=== PATIENT | female | born 1985 | race Caucasian/White ===

== ENCOUNTER 2016-06-16 03:14 | Emergency (ER) | payer OTHER ==
--- NOTE | 2016-06-16 03:46 | ERNOTE ---
Time Seen by Provider: 06/16/16 03:32 Stated Complaint: COUGH Presenting Symptoms:: cough Source: patient, family Exam Limitations: no limitations Immunizations: IMMUNIZATION HX Immunizations Up to Date Yes History of Influenza Vaccine Yes Hx Pneumococcal Vaccination No Allergies/Adverse Reactions: Allergies acetaminophen [From Percocet] Adverse Reaction (Verified 12/11/15 17:43) Nausea oxycodone HCl [From Percocet] Adverse Reaction (Verified 12/11/15 17:43) Nausea Home Medications: HOME MEDICATIONS Propranolol HCl 80 mg PO DAILY 12/11/15 [Last Taken Unknown] metFORMIN HCL [Glumetza] 500 mg PO DAILY 12/11/15 [Last Taken Unknown] - History of Present Ilness Narrative: coughing for 3 weeks. coughing to the point of vomiting. Timing: constant Severity: moderate Frequency/Possible Cause: Reports: occasional episodes Modifying Factors - Improves: Reports: rest Modifying Factors - Worsens: Reports: activity, cold Associated Symptoms: Reports: shortness of breath, wheezing, nasal drainage Review of Systems - Review of Systems Constitutional: Present: fever - subjective, chills, diaphoresis EYE: Present: no symptoms reported ENT: Present: nasal drainage Respiratory: Present: shortness of breath, cough, wheezing Cardiology: Present: no symptoms reported Gastrointestinal/Abdominal: Present: vomiting - after coughing spells Genitourinary: Present: no symptoms reported Musculoskeletal: Present: no symptoms reported Skin: Present: no symptoms reported Neurological: Present: no symptoms reported Endocrine: Present: no symptoms reported Hematologic/Lymphatic: Present: no symptoms reported Psych: Present: no symptoms reported - Patient's Past Medical History Patient History - Medical: Chronic Pain, Diabetes Type 2 Patient History - Cardiac/Respiratory: Arrhythmias, Asthma, Bronchitis, Sleep Apnea Patient History - Cancer: Skin Patient History - Surgical Procedures: , D & C, Other Patient History - Other: None - Social History Abuse History: No History of abuse Psych History: No pertinent hx Smoking Status: Former smoker Have you smoked in the past 12 months: No Do you dip or chew tobacco: No Alcohol Use: none Drug Use: none - Immunizations Immunizations Up to Date: Yes - Tdap 2007 Hx Pneumococcal Vaccination: No History of Influenza Vaccine: Yes Physical Exam - Physical Exam General Appearance: Present: wd/wn, alert, no apparent distress Eye Exam: Normal inspection: bilateral, PERRL: bilateral Ears, Nose, Throat: Present: normal ENT inspection Neck: Present: normal inspection, nontender Respiratory: Present: no respiratory distress, normal breath sounds, lungs clear Cardiovascular/Chest: Present: regular rate, rhythm, no murmur Gastrointestinal/Abdominal: Present: normal bowel sounds, nontender, nondistended, soft Back Exam: Present: normal inspection, normal range of motion Extremity Exam: Present: normal inspection, no edema Neurological Exam: Present: alert, oriented, normal mood/affect Skin Exam: Present: normal color, warm/dry ED Progress - Results and Orders Patient's Lab Results:: I have reviewed the patient's lab results. Results and Orders: Laboratory Tests 06/16/16 06/16/16 03:41 03:49 WBC 13.7 H Hgb 15.2 Hct 46.2 Plt Count 403 Chlamy pneumoniae PCR Not detected Adenovirus (PCR) Not detected B. pertussis DNA (PCR) Not detected Coronavirus OC43 (PCR) Not detected Coronavirus HKU1 (PCR) Not detected Coronavirus 229E (PCR) Not detected Coronavirus NL63 (PCR) Not detected Human Metapneumovirus Not detected Influenza A (H1) PCR Not detected Influenza A (H1N1) PCR Not detected Influenza A (H3) PCR Not detected Influenza B (RT-PCR) Not detected M. pneumoniae (PCR) Not detected Parainfluenza 1 (PCR) Not detected Parainfluenza 2 (PCR) Not detected Parainfluenza 3 (PCR) Not detected Parainfluenza 4 (PCR) Not detected RSV (PCR) Not detected Rhinovirus (PCR) Not detected - Vital Signs Patient's Vital Signs:: I have reviewed the patient's vital signs. Vital Signs: Vital Signs 06/16/16 03:19 Temperature 37.7 C H Pulse Rate 106 H Respiratory 20 Rate Blood Pressure 123/56 O2 Sat by Pulse 97 Oximetry - X-Ray X-Ray #1 X-Ray: chest Interpretation: Interp. by me X-ray Comments: No infiltrate or effusion - Progress/Reassessment Chief Complaint: Upper Respiratory Symptoms Departure - Departure Clinical Impression: Allergic rhinitis Qualifiers: Allergic rhinitis trigger: pollen Allergic rhinitis seasonality: seasonal Qualified Code(s): J30.1 - Allergic rhinitis due to pollen Disposition: Home self-care Condition: Good Instructions: Allergic Rhinitis Additional Instructions: you may try claritin, zyrtec or seema Referrals: Milana Dash, [employer] [Primary Care Provider] -
--- OUTSIDE RECORDS SUMMARY | 2016-06-16 03:56 | XMS REPORT | Continuity of Care Document ---
:1985 Author Organization [facility] ([facility]) Address [address] [place] [address] Phone [phone] Care Team Providers Name Role Phone Adelaida Steven Primary Care Provider [phone] Source Comments This disclosure is being made pursuant to the Care Everywhere program, applicable federal and state laws, and may not contain all informaitonavailable regarding this patient.[facility] ([facility]) Active Allergies and Adverse Reactions No Known Allergies Current Medications Prescription Sig. Disp. Refills Start Date End Date Status albuterol (PROAIR HFA) Use 2 Puffs by Active 90 mcg/Actuation inhalation every 6 inhaler hours as needed. levonorgestrel use 1 Intra Uterine Active (MIRENA) 20 mcg/24 hr Device in your uterus device once. DM/PSEUDOEPHED/ACETAMI Take by mouth as Active NOPHEN (VICKS DAYQUIL needed. PO) HYDROcodone-acetaminop Take 1 Tab by mouth 20 Tab 0 12/04/2010 Active hen 5-500 mg per every 4 hours as tablet needed for Pain. No more than 6 tabs/24 hours. DO NOT EXCEED 3,000 MG ACETAMINOPHEN PER DAY FROM ALL SOURCES Indications: Pain ibuprofen 800 mg Take 1 Tab by mouth 20 Tab 2 12/04/2010 Active tablet every 6 hours as needed for Pain. No more than 4 tabs/24 hours. DO NOT EXCEED 3,200 MG IBUPROFEN PER DAY FROM ALL SOURCES Indications: Pain chlorhexidine Take 10-15 mL by 473 mL 2 12/04/2010 Active (PERIDEX) 0.12 % oral mouth after meals and rinse at bedtime. Swish and spit. NPO 1/2 hour. Indications: Mouth Infection Prevention Active Problems Not on file Social History Tobacco Use Types Packs/Day Years Used Date Never Smoker Smokeless Tobacco: Never Used Alcohol Use Drinks/Week oz/Week Comments No Last Filed Vital Signs Vital Sign Reading Time Taken Blood Pressure 128/80 12/04/2010 4:59 PM CDT Pulse 99 12/04/2010 3:51 PM CDT Temperature - - Respiratory Rate 20 12/04/2010 3:51 PM CDT Height - - Weight - - Body Mass Index - - Oxygen Saturation 100% 12/04/2010 3:51 PM CDT Plan of Care Health Maintenance Due Date Last Done Comments Hepatitis B Vaccine (1 of 3 - Primary Series) 1985 Tdap Vaccine 01/02/1995 Lipid Disorder Screening 01/02/2002 MMR Vaccine 01/02/2002 Td Vaccine 01/02/2002 Varicella Vaccine (1 of 2 - Adult - No Evidence of 01/02/2002 Immunity) Cervical Cancer Screening 01/02/2014 Influenza Vaccine: Seasonal (#1) 09/08/2015 Results from Last 3 Months Not on file
[2016-06-16 04:10] LABS: Hematocrit 46.2 % (37.0-47.0); Hemoglobin 15.2 gm/dL (12.5-16.0); Mean Cell Volume 90.2 fl (78-100); Mean Corpuscular Hemoglobin 29.7 pg (27-31); Mean Corpuscular Hgb Conc 32.9 g/dl (32-36); Mean Platelet Volume 8.7 fl (6.0-9.5); Neutrophil % 72.8 % (42-75.0); Platelet Count 403 K/mm3 (150-450); Red Blood Count 5.12 M/mm3 (4.2-5.4); Red Cell Distribution Width 14.5 % (11.5-14.0); White Blood Count 13.7 K/mm3 (4.0-10.5)
[2016-06-16 05:30] VITALS: BP 125/81
== END 2016-06-16 05:20 | disposition home or self-care (01) ==
LOC: ER 03:14
DX: J30.1 Allergic rhinitis due to pollen (principal); E11.9 Type 2 diabetes mellitus without complications; I10 Essential (primary) hypertension